=== PATIENT | male | born 1950 | race Caucasian/White ===

== ENCOUNTER → 2017-11-03 09:29 | Outpatient (CLI) | payer BC, SELFPAY ==
[2017-11-03 10:59] LABS: Absolute Lymphocyte Count 1.75 X10^3/ul (0.83-4.51); Absolute Neutrophil Count 4.5 X10^3/uL (2.0-7.7); Basophil# 0.06 X10^3/uL; Basophil% 0.8 % (0-1); Eosinophil# 0.24 X10^3/uL; Eosinophils% 3.2 % (0-5); Hemoglobin 16.4 g/dl (13.0-16.5); Lymphocyte # 1.75 X10^3/ul (4.0); Lymphocyte % 23.6 % (19-41); Mean Corp Hgb Conc 34.2 g/gl (32-36); Mean Corpuscular Hgb 31.1 pg (27.0-32.0); Mean Corpuscular Volume 90.9 fL (80-94); Mean Platelet Vol. 11.3 fl (6.2-12.0); Monocyte# 0.79 X10^3/uL; Monocyte% 10.6 % (0-10); Neutrophil # 4.53 X10^3/uL (2.7-7.7); Neutrophil % 61.1 % (47-70); Platelet Count 168 K/mm3 (150-450); RBC Distribution Width CV 12.5 % (11.6-14.6); RBC Distribution Width SD 41.3 fl (35.1-43.9); Red Blood Count 5.28 M/mm3 (4.6-6.2); White Blood Count 7.4 K/mm3 (4.4-11.0)
[2017-11-03 11:01] LABS: POSITIVE COUNT NO; POSITIVE DIFFERENTIAL NO; POSITIVE MORPHOLOGY NO
[2017-11-03 11:35] LABS: AST(SGOT) 33 U/L (15-37); Alanine Aminotransfer ALT/SGPT 59 U/L (16-61); Albumin, Serum 3.7 g/dL (3.2-5.0); Alkaline Phosphatase 70 U/L (45-117); Anion Gap 9 (5-15); BUN 17 mg/dL (7-18); BUN/Creat Ratio 13.2 RATIO (10-20); Bilirubin, Direct 0.16 mg/dL (0.00-0.30); Calcium,Total 8.8 mg/dL (8.5-10.1); Chloride 105 mmol/L (98-107); Cholesterol 136 mg/dL (200); Creatinine, Serum 1.29 mg/dL (0.70-1.30); EST Glomerular Filtration Rate 59 mL/min (>60); Est Glom Filt Rate - Afr Amer 71 mL/min (>60); Globulin 3.4 g/dL (2.2-4.2); Glucose 98 mg/dL (74-106); High Density Lipoprotein 31 mg/dL; Magnesium 2.2 mg/dL (1.6-2.6); Potassium 3.8 mmol/L (3.5-5.1); Protein, Total 7.1 g/dL (6.4-8.2); Sodium Level 143 mmol/L (136-145); Thyroid Stim Hormone (TSH) 2.56 uIU/mL (0.358-3.74); Triglycerides 111 mg/dL; Very Low Density Lipoprotein 22 mg/dL (5-40)
== END ==
PROVIDERS: Family Provider Internal Medicine; PCP Internal Medicine; Visit Provider Internal Medicine Cardiovascular Disease
DX: Z95.810 Presence of automatic (implantable) cardiac defibrillator (principal); I43 Cardiomyopathy in diseases classified elsewhere
CPT/HCPCS: 36415; 80048; 80061; 80076; 83735; 84443; 85025

== ENCOUNTER → 2020-01-07 13:24 | Outpatient (CLI) | payer BC, SELFPAY ==
[2019-11-08 09:31] VITALS: BMI 32.8
--- NOTE | 2020-01-07 13:30 | RAD_ITS ---
STUDY: X-RAY CHEST REASON FOR EXAM: Male, 69 years old. Check RV ICD lead TECHNIQUE: PA and lateral views of the chest. COMPARISON: Comparison is made with prior study dated November 05, 2014. FINDINGS: The lungs are clear and expanded. There is no demonstrated pleural abnormality. Normal size heart. Stable appearance of the dual chamber left-sided ICD. Normal mediastinum and aneta. Normal visualized pulmonary arteries. There is atherosclerotic tortuosity of the aortic arch and descending thoracic aorta. There are diffuse degenerative changes of the visualized thoracic spine. Normal visualized ribs, clavicles, and shoulders. There is no demonstrated abnormality of the visualized soft tissue structures of the upper abdomen. RAD/Chest PA and Lateral IMPRESSION: Stable examination. Electronically Signed: aMrco Borja, at 15:31 EDT , Service support ,
== END ==
PROVIDERS: PCP Internal Medicine; Referring Provider Internal Medicine Cardiovascular Disease; Visit Provider Internal Medicine Cardiovascular Disease
DX: I42.8 Other cardiomyopathies (principal); I44.7 Left bundle-branch block, unspecified; Z95.810 Presence of automatic (implantable) cardiac defibrillator
CPT/HCPCS: 71046

== ENCOUNTER 2020-02-06 10:03 | Emergency (ER) | payer BC, SELFPAY ==
[2019-11-08 09:31] VITALS: BMI 32.8
[2020-02-06 10:05] VITALS: BP 171/80; PULSE 64; RESP 17; TEMP 36.9; O2SAT 95; BMI 32.5
--- NOTE | 2020-02-06 10:06 | NURSING ---
NO OLD EKGS
--- NOTE | 2020-02-06 10:17 | EKG12_ITS ---
Test Reason : Blood Pressure : / mmHG Vent. Rate : 064 BPM Atrial Rate : 064 BPM P-R Int : 196 ms QRS Dur : 170 ms QT Int : 488 ms P-R-T Axes : 067 011 -17 degrees QTc Int : 503 ms Suspect unspecified pacemaker failure Sinus rhythm with frequent ventricular-paced complexes Left bundle branch block Abnormal ECG Confirmed by DANIELE BAKER, SOLO ([id number]), video news editor VARGHESE SOLIS ([id number]) on 02/11/2020 11:06:22 AM Referred By: LUIS FELIPE Confirmed By:SOLO SANABRIA MD
[2020-02-06] MEDS: Aspirin 81 MG TAB.CHEW 324 MG PO (10:39)
--- NOTE | 2020-02-06 10:40 | RAD_ITS ---
STUDY: X-RAY CHEST REASON FOR EXAM: Male, 69 years old. DEFIB KEEPS FIRING, LOOSE WIRE PER PT TECHNIQUE: Single AP portable view of the chest. COMPARISON: Comparison is made with prior study dated January 07, 2020. FINDINGS: EKG electrodes are seen. The lungs are clear and expanded. There is no demonstrated pleural abnormality. Normal size heart. A left-sided dual-chamber pacemaker is seen. Normal mediastinum and aneta. Normal visualized pulmonary arteries. There is atherosclerotic tortuosity of the aortic arch and descending thoracic aorta. There are diffuse degenerative changes of the visualized thoracic spine. Normal visualized ribs, clavicles, and shoulders. There is no demonstrated abnormality of the visualized soft tissue structures of the upper abdomen. RAD/Chest 1 View (Portable) IMPRESSION: No acute abnormality is seen. Electronically Signed: Marco Borja, at 11:09 EDT , Service support ,
[2020-02-06] MEDS: 0.9% Normal Saline 1,000 ML 150 ML IV (10:42)
--- NOTE | 2020-02-06 10:53 | NURSING ---
CALLED [facility], TALKED TO REKHA
[2020-02-06 10:54] LABS: Absolute Lymphocyte Count 2.44 X10^3/uL (0.83-4.51); Absolute Neutrophil Count 6.2 X10^3/uL (2.0-7.7); Basophil# 0.09 X10^3/uL; Basophil% 0.9 % (0-1); Eosinophil# 0.16 X10^3/uL; Eosinophils% 1.6 % (0-5); Hematocrit 50.2 % (40-54); Hemoglobin 16.9 g/dL (13.0-16.5); Lymphocyte # 2.44 X10^3/ul (4.0); Lymphocyte % 24.9 % (19-41); Mean Corp Hgb Conc 33.7 g/dL (32-36); Mean Corpuscular Hgb 31.2 pg (27.0-32.0); Mean Corpuscular Volume 92.6 fL (80-94); Monocyte# 0.92 X10^3/uL; Monocyte% 9.4 % (0-10); NRBC Flagged by Analyzer 0 % (0-5); Neutrophil # 6.16 X10^3/uL (2.7-7.7); Neutrophil % 62.8 % (47-70); Platelet Count 161 K/mm3 (150-450); RBC Distribution Width CV 12.9 % (11.6-14.6); RBC Distribution Width SD 43.5 fl (35.1-43.9); Red Blood Count 5.42 M/mm3 (4.6-6.2); White Blood Count 9.8 K/mm3 (4.4-11.0)
[2020-02-06 11:10] LABS: Anion Gap 5 (5-15); BUN 20 mg/dL (7-18); BUN/Creat Ratio 15.7 RATIO (10-20); Calcium,Total 9.2 mg/dL (8.5-10.1); Chloride 105 mmol/L (98-107); Creatinine, Serum 1.27 mg/dL (0.70-1.30); EST Glomerular Filtration Rate 59 mL/min (>60); Est Glom Filt Rate - Afr Amer 72 mL/min (>60); Estimated Creatinine Clearance 56.82 ml/min; Glucose 148 mg/dL (74-106); Magnesium 2.2 mg/dL (1.6-2.6); Potassium 3.6 mmol/L (3.5-5.1); Sodium Level 140 mmol/L (136-145)
[2020-02-06 11:16] VITALS: BP 145/78; PULSE 60; RESP 16; O2SAT 98
--- NOTE | 2020-02-06 11:18 | NURSING ---
CALLED PHYSICANS, ETA IS 20 MIN
--- NOTE | 2020-02-06 11:22 | ED.VISSUMM ---
- ER Visit Summary Date of Service: 02/06/20 Chief Complaint: Defibrillator firing History of Present Illness: The patient is a [address] Alvarez and Dr. Jarrett for he. He had a ICD placed by Dr. Vargas at [facility]. Reports that approximately 2 weeks ago he was seen and had an x-ray that he believes showed a fractured lead. He was scheduled to have this interrogated today. States that since 9:00 this morning it is fired 6 times. Reports he does have some soreness around his defibrillator. However, he denies chest pain. Physical Examination: Vitals: Stable. Afebrile. General: Well-nourished and well-developed. Head: Normocephalic atraumatic. Neck: Supple, no lymphadenopathy. No JVD. Nontender. Cardiovascular: Regular rate and rhythm. No murmurs. Respiratory: No respiratory distress. Clear to auscultation bilaterally. Mild tenderness palpation over his defibrillator. There is no erythema, warmth, induration, or fluctuance. Abdominal: Soft, nontender, nondistended, normal bowel sounds. No guarding, rebound, or peritoneal signs. Back: Nontender. Extremities: Nontender, no edema. Skin: Normal color, no rash. Neurologic: Alert and oriented ?3. Cranial nerves II through XII are intact. Normal strength and sensation. Psych: Normal affect. Test Results: EKG is sinus at 64 with frequent ventricular paced beats. His troponin 0 0.386. Chem-7 shows a BUN of 20 and glucose 148. CBC shows a hemoglobin of 16.9. Clinical Impression(s) from Imaging Studies Chest X-Ray 02/06/20 10:40 IMPRESSION: No acute abnormality is seen. Electronically Signed: Marco Huong, at 11:09 EDT , Service support , Emergency Department Course and Treatment: Patient pacemaker/defibrillator was interrogated in the emergency department it does appear that there is a malfunction with 1 of the wires. The defibrillator was turned off. I suspect that his elevated troponin is actually due to the multiple shocks he is received. Patient refused pain medications. Treatment Plan: Patient was discussed with Dr. Saleh and Dr. Dodd. He will be transferred to [facility] for further evaluation and treatment. Disposition: Transferred in improved condition. Impression: 1. Pacemaker/defibrillator malfunction. 2. Troponin 0.386. This note was generated with [employer] dictation software. It may contain incorrect words, spelling, and punctuation that were not noted in review of the chart prior to signing ED Disposition - Plan for ED Patient: Referrals: Tasia Lira DO [Primary Care Provider] -
== END 2020-02-06 11:58 | disposition short-term general hospital (02) ==
LOC: ED 11:06
PROVIDERS: Emergency Provider Emergency Medicine; PCP Internal Medicine
DX: T82.11 Breakdown (mechanical) of cardiac electronic device (principal); Y83.8 Other surgical procedures as the cause of abnormal reaction of the patient, or of later complication, without mention of misadventure at the time of the procedure; Z95.810 Presence of automatic (implantable) cardiac defibrillator; I10 Essential (primary) hypertension; E78.00 Pure hypercholesterolemia, unspecified
CPT/HCPCS: 71045; 80048; 83735; 84484; 85025; 93005; 99285; J7030

== ENCOUNTER → 2020-02-18 14:56 | Outpatient (CLI) | payer BC, SELFPAY ==
[2020-02-06 10:05] VITALS: BMI 32.5
--- NOTE | 2020-02-18 14:59 | VDUE_ITS ---
Reason For Study: SWELLING Right Proximal Left Proximal Right subclavian vein is spontaneous, widely Left jugular vein is spontaneous, widely patent, phasic, with no intraluminal patent, phasic, with no intraluminal echogenicity noted. echogenicity noted. Left subclavian vein is spontaneous, widely patent, phasic, with no intraluminal echogenicity noted. Left Arm Left axillary vein is spontaneous, patent, phasic, competent, compressible and demonstrates augmentation. Left brachial vein is compressible. Left cephalic vein is compressible. Basilic V is dilated and noncompressible just superior to antecubital area to mid upper arm. The remaining of the Basilic Vein is compressible and does not extend into the deep system. Left Lower Arm Left radial vein is compressible. Left ulnar vein is compressible. Interpretation Summary Deep veins of the left upper extremity are patent and compressible segmentally. There is no evidence of deep vein thrombosis. Acute superficial thrombophlebitis is noted involving the left basilic vein from the antecubital space to the mid-bicep. The superficial thrombophlebitis does not approach the deep venous system. The left cephalic vein is patent and compressible. Ordering Physician: Sulma Hicks Referring Physician: Tasia Lira Performed By: Noni Redmond, JOSH, RVT ?
== END ==
PROVIDERS: PCP Internal Medicine; Referring Provider Nurse Practitioner; Visit Provider Nurse Practitioner
DX: M79.89 Other specified soft tissue disorders (principal)
CPT/HCPCS: 93971

== ENCOUNTER → 2021-04-28 10:26 | Outpatient (CLI) | payer BC, SELFPAY ==
[2021-04-28 12:10] LABS: Absolute Lymphocyte Count 1.49 X10^3/uL (0.83-4.51); Absolute Neutrophil Count 4.8 X10^3/uL (2.0-7.7); Basophil# 0.05 X10^3/uL; Basophil% 0.7 % (0-1); Eosinophil# 0.16 X10^3/uL; Eosinophils% 2.2 % (0-5); Hematocrit 50.8 % (40-54); Hemoglobin 16.9 g/dL (13.0-16.5); Lymphocyte # 1.49 X10^3/ul (0.83-4.51); Lymphocyte % 20.6 % (19-41); Mean Corp Hgb Conc 33.3 g/dL (32-36); Mean Corpuscular Hgb 30.3 pg (27.0-32.0); Mean Platelet Vol. 11.1 fl (6.2-12.0); Monocyte# 0.68 X10^3/uL; Monocyte% 9.4 % (0-10); NRBC Flagged by Analyzer 0 % (0-5); Neutrophil # 4.81 X10^3/uL (2.7-7.7); Neutrophil % 66.4 % (47-70); Platelet Count 151 K/mm3 (150-450); RBC Distribution Width CV 12.7 % (11.6-14.6); RBC Distribution Width SD 42.7 fl (35.1-43.9); Red Blood Count 5.58 M/mm3 (4.6-6.2); White Blood Count 7.2 K/mm3 (4.4-11.0)
[2021-04-28 12:29] LABS: Vitamin D,25 Hydroxy 39.7 ng/mL
[2021-04-28 12:41] LABS: Hemoglobin A1c 5.8 % (3.8-5.6)
[2021-04-28 12:47] LABS: AST(SGOT) 31 U/L (15-37); Alanine Aminotransfer ALT/SGPT 51 U/L (16-61); Albumin, Serum 3.7 g/dL (3.2-5.0); Alkaline Phosphatase 80 U/L (45-117); Anion Gap 8 (5-15); BUN 16 mg/dL (7-18); BUN/Creat Ratio 11.6 RATIO (10-20); Calcium,Total 8.8 mg/dL (8.5-10.1); Chloride 107 mmol/L (98-107); Cholesterol 144 mg/dL (200); Creatinine, Serum 1.38 mg/dL (0.70-1.30); EST Glomerular Filtration Rate 54 mL/min (>60); Est Glom Filt Rate - Afr Amer 65 mL/min (>60); Globulin 3.7 g/dL (2.2-4.2); Glucose 117 mg/dL (74-106); High Density Lipoprotein 41 mg/dL; PSA,Total - Annual Screen 3.35 ng/mL (0.00-4.00); Potassium 4.1 mmol/L (3.5-5.1); Protein, Total 7.4 g/dL (6.4-8.2); Sodium Level 142 mmol/L (136-145); Thyroid Stim Hormone (TSH) 5.35 uIU/mL (0.358-3.74); Triglycerides 80 mg/dL; Very Low Density Lipoprotein 16 mg/dL (5-40)
[2021-04-29 11:21] LABS: Free T3 2.6 pg/mL (2.18-3.98); T4 Free Direct 0.79 ng/dL (0.76-1.46)
== END ==
PROVIDERS: Nurse Practitioner Family; PCP Internal Medicine; Referring Provider Internal Medicine; Visit Provider Internal Medicine
DX: E78.5 Hyperlipidemia, unspecified (principal); E66.9 Obesity, unspecified; R73.09 Other abnormal glucose; I10 Essential (primary) hypertension; G47.33 Obstructive sleep apnea (adult) (pediatric); E55.9 Vitamin D deficiency, unspecified; Z12.5 Encounter for screening for malignant neoplasm of prostate
CPT/HCPCS: 36415; 80053; 80061; 82306; 83036; 83735; 84153; 84439; 84443; 84481; 85025; G0103

== ENCOUNTER 2021-07-27 09:05 | Outpatient (CLI) | payer BC, SELFPAY | END 2021-07-27 23:59 | disposition home or self-care (01) | LOC: LABSPEC 09:06 | PROVIDERS: PCP Internal Medicine; Referring Provider Physician Assistant Surgical; Visit Provider Physician Assistant Surgical | DX: U07.1 COVID-19 (principal) | CPT/HCPCS: 87635; U0003; U0005 ==

== ENCOUNTER → 2022-02-01 | Outpatient (CLI) | payer BC, SELFPAY ==
--- NOTE | 2022-02-01 12:47 | ECHOCS_ITS ---
Version 2 Reason For Study: CHF Procedure This was a 2D Doppler, Color Flow transthoracic echocardiogram. Contrast injection was performed. Exam performed in department. Left Ventricle Normal LV size. The estimated ejection fraction is 40 %. There is mild to moderate global hypokinesis of the left ventricle. Right Ventricle Normal RV size. ICD or pacer leads identified within the right ventricle. Normal systolic function. Atria Normal left atrium. Normal right atrium. Mitral Valve Normal mitral valve. Mild (1+) eccentric mitral valve insufficiency. Tricuspid Valve Normal tricuspid valve. Mild (1+) tricuspid valve insufficiency. Pulmonary artery systolic pressure is 40 mmHg. Aortic Valve The aortic valve is not well visualized. Pulmonic Valve Normal pulmonic valve. Great Vessels Normal aortic root. The pulmonary artery is normal size. Normal inferior vena cava. Pericardium/Pleural No pericardial effusion. Medication Diluted definity 3ml given slow IV push to enhance endocardial definition. MMode/2D Measurements & Calculations LVIDd: 4.9 cm IVSd: 1.2 cm Ao root diam: 3.2 cm LVIDs: 4.1 cm LVPWd: 1.3 cm RVDd: 4.0 cm FS: 15.4 % LAV(MOD-bp): 69.4 ml LVAd ap4: 33.3 cm2 SV(MOD-sp4): 48.7 ml LAV(MOD-bp) Indexed: 30.7 ml/m2 LVLd ap4: 8.4 cm LAV(MOD-sp2): 72.3 ml EDV(MOD-sp4): 107.0 ml LAV(MOD-sp4): 60.0 ml EDV(sp4-el): 112.2 ml LVAs ap4: 22.7 cm2 LVLs ap4: 7.2 cm ESV(MOD-sp4): 58.3 ml ESV(sp4-el): 60.8 ml EF(MOD-sp4): 45.5 % EF(sp4-el): 45.8 % SV(sp4-el): 51.4 ml LA A4 area: 21.0 cm2 LA dimension(2D): 5.0 cm RA A4 area: 19.4 cm2 Doppler Measurements & Calculations Lat Peak E' Mike: 8.7 cm/sec Med Peak E' Mike: 7.5 cm/sec Ao V2 max: 126.9 cm/sec Ao max P.4 mmHg Ao V2 mean: 91.8 cm/sec Ao mean P.6 mmHg Ao V2 VTI: 27.6 cm LV V1 max: 104.4 cm/sec PA V2 max: 81.6 cm/sec TR max mike: 297.5 cm/sec LV V1 max P.4 mmHg TR max P.4 mmHg ECHO/Echo Complete W/ Contrast Interpretation Summary Normal LV size. The estimated ejection fraction is 40 %. There is mild to moderate global hypokinesis of the left ventricle. Mild (1+) eccentric mitral valve insufficiency. Pulmonary artery systolic pressure is 40 mmHg. Contrast injection was performed. Compared to previous study, the left ventricu lar systolic function has improved.. Ordering Physician: Ganesh Silva Referring Physician: Etta Rocha Performed By: Ira Silva, JOSH, RVT
== END | disposition home or self-care (01) ==
PROVIDERS: PCP Internal Medicine; Referring Provider Nurse Practitioner Family; Visit Provider Nurse Practitioner Family
DX: I42.8 Other cardiomyopathies (principal); Z95.810 Presence of automatic (implantable) cardiac defibrillator; I10 Essential (primary) hypertension
CPT/HCPCS: 93306; Q9957; A4216; C8929

== ENCOUNTER → 2022-04-29 | Outpatient (CLI) | payer BC, SELFPAY ==
[2022-04-29 10:18] LABS: Absolute Lymphocyte Count 1.71 X10^3/uL (0.83-4.51); Absolute Neutrophil Count 4.1 X10^3/uL (2.0-7.7); Basophil# 0.07 X10^3/uL; Eosinophil# 0.23 X10^3/uL; Eosinophils% 3.3 % (0-5); Hematocrit 49.3 % (40-54); Hemoglobin 16.3 g/dL (13.0-16.5); Lymphocyte # 1.71 X10^3/ul (0.83-4.51); Lymphocyte % 24.7 % (19-41); Mean Corp Hgb Conc 33.1 g/dL (32-36); Mean Corpuscular Volume 93.7 fL (80-94); Mean Platelet Vol. 11.3 fl (6.2-12.0); Monocyte# 0.74 X10^3/uL; Monocyte% 10.7 % (0-10); NRBC Flagged by Analyzer 0 % (0-5); Neutrophil # 4.12 X10^3/uL (2.7-7.7); Neutrophil % 59.7 % (47-70); Platelet Count 172 K/mm3 (150-450); RBC Distribution Width CV 12.2 % (11.6-14.6); RBC Distribution Width SD 42.5 fl (35.1-43.9); Red Blood Count 5.26 M/mm3 (4.6-6.2); White Blood Count 6.9 K/mm3 (4.4-11.0)
[2022-04-29 10:43] LABS: Vitamin D,25 Hydroxy 45.6 ng/mL
[2022-04-29 10:49] LABS: Hemoglobin A1c 5.8 % (3.8-5.6)
[2022-04-29 10:50] LABS: ALB/GLOB Ratio 1.1 RATIO (0.9-2.4); AST(SGOT) 29 U/L (15-37); Alanine Aminotransfer ALT/SGPT 57 U/L (16-61); Albumin, Serum 3.8 g/dL (3.2-5.0); Alkaline Phosphatase 79 U/L (45-117); Anion Gap 6 (5-15); BUN 18 mg/dL (7-18); BUN/Creat Ratio 14.3 RATIO (10-20); Chloride 111 mmol/L (98-107); Cholesterol 135 mg/dL (200); Creatinine, Serum 1.26 mg/dL (0.70-1.30); EST Glomerular Filtration Rate 60 mL/min (>60); Est Glom Filt Rate - Afr Amer 72 mL/min (>60); Globulin 3.5 g/dL (2.2-4.2); Glucose 115 mg/dL (74-106); High Density Lipoprotein 41 mg/dL; Protein, Total 7.3 g/dL (6.4-8.2); Sodium Level 144 mmol/L (136-145); T4 Free Direct 0.82 ng/dL (0.76-1.46); Thyroid Stim Hormone (TSH) 2.83 uIU/mL (0.358-3.74); Triglycerides 60 mg/dL; Very Low Density Lipoprotein 12 mg/dL (5-40)
== END | disposition home or self-care (01) ==
LOC: LAB 09:23
PROVIDERS: PCP Internal Medicine; Visit Provider Internal Medicine
DX: E55.9 Vitamin D deficiency, unspecified (principal); I42.8 Other cardiomyopathies; E66.9 Obesity, unspecified; I10 Essential (primary) hypertension; R73.9 Hyperglycemia, unspecified; R73.09 Other abnormal glucose
CPT/HCPCS: 36415; 80053; 80061; 82306; 83036; 84439; 84443; 85025

== ENCOUNTER → 2023-02-04 | Outpatient (CLI) | payer BC, SELFPAY ==
--- NOTE | 2023-02-04 08:35 | ECHOD_ITS ---
Reason For Study: CMP Procedure This was a 2D Doppler, Color Flow transthoracic echocardiogram. Exam performed in department. Left Ventricle Normal LV size. Mild concentric left ventricular hypertrophy. The left ventricular ejection fraction is 45 %. There is mild global hypokinesis of the left ventricle. Right Ventricle Normal RV size. Normal systolic function. Atria The left atrium is moderately enlarged. Normal right atrium. Mitral Valve Normal mitral valve. Tricuspid Valve Normal tricuspid valve. Mild (1+) tricuspid valve insufficiency. Pulmonary artery systolic pressure is 36 mmHg. Aortic Valve The aortic valve is not well visualized. Pulmonic Valve Normal pulmonic valve. Great Vessels Normal aortic root. The pulmonary artery is normal size. Normal inferior vena cava. Pericardium/Pleural No pericardial effusion. MMode/2D Measurements & Calculations LVIDd: 4.6 cm IVSd: 1.4 cm Ao root diam: 3.2 cm LVIDs: 3.4 cm LVPWd: 1.7 cm FS: 26.0 % LAV(MOD-bp): 105.0 ml LVAd ap4: 40.6 cm2 SV(MOD-sp4): 67.9 ml LAV(MOD-bp) Indexed: 46.3 ml/m2 LVLd ap4: 10.0 cm LAV(MOD-sp2): 106.9 ml EDV(MOD-sp4): 137.3 ml LAV(MOD-sp4): 98.1 ml EDV(sp4-el): 139.2 ml LVAs ap4: 24.2 cm2 LVLs ap4: 8.2 cm ESV(MOD-sp4): 69.4 ml ESV(sp4-el): 60.7 ml EF(MOD-sp4): 49.5 % EF(sp4-el): 56.4 % SV(sp4-el): 78.5 ml LA A4 area: 26.1 cm2 LA dimension(2D): 4.2 cm RA A4 area: 18.4 cm2 TAPSE: 2.5 cm Time Measurements MV dec time: 0.20 sec Doppler Measurements & Calculations MV E max mike: 70.3 cm/sec Lat Peak E' Mike: 6.8 cm/sec Med Peak E' Mike: 6.2 cm/sec MV A max mike: 49.4 cm/sec E/E' lat: 10.4 E/E' med: 11.4 MV E/A: 1.4 MV V2 max: 81.6 cm/sec Ao V2 max: 101.6 cm/sec MV max P.7 mmHg MV dec slope: 348.3 cm/sec2 Ao max P.2 mmHg MV V2 mean: 38.7 cm/sec Ao V2 mean: 69.4 cm/sec MV mean P.75 mmHg Ao mean P.3 mmHg MV V2 VTI: 26.7 cm Ao V2 VTI: 22.2 cm AV (velocity ratio): 0.69 LV V1 max: 66.1 cm/sec PA V2 max: 71.4 cm/sec TR max mike: 283.7 cm/sec LV V1 max P.8 mmHg PA V2 mean: 52.5 cm/sec TR max P.2 mmHg LV V1 mean P.0 mmHg LV V1 mean: 47.3 cm/sec LV V1 VTI: 15.2 cm ECHO/Echo Complete Interpretation Summary Normal LV size. Mild concentric left ventricular hypertrophy. The left ventricular ejection fraction is 45 %. There is mild global hypokinesis of the left ventricle. Pulmonary artery systolic pressure is 36 mmHg. Compared to previous study, the left ventricular systolic function is the same. . Ordering Physician: Cheikh Ny Referring Physician: Cheikh Ny Performed By: Coby Call RCS
== END | disposition home or self-care (01) ==
LOC: CVS 08:32
PROVIDERS: PCP Internal Medicine; Referring Provider Internal Medicine Cardiovascular Disease; Visit Provider Internal Medicine Cardiovascular Disease
DX: I42.8 Other cardiomyopathies (principal)
CPT/HCPCS: 93306

== ENCOUNTER → 2023-03-14 | Outpatient (CLI) | payer BC, SELFPAY ==
[2023-03-14 11:21] LABS: Absolute Lymphocyte Count 1.92 X10^3/uL (0.83-4.51); Absolute Neutrophil Count 5.9 X10^3/uL (2.0-7.7); Basophil# 0.08 X10^3/uL; Basophil% 0.9 % (0-1); Eosinophil# 0.22 X10^3/uL; Eosinophils% 2.4 % (0-5); Hematocrit 49.7 % (40-54); Hemoglobin 16.2 g/dL (13.0-16.5); Lymphocyte # 1.92 X10^3/ul (0.83-4.51); Lymphocyte % 20.9 % (19-41); Mean Corp Hgb Conc 32.6 g/dL (32-36); Mean Corpuscular Hgb 30.2 pg (27.0-32.0); Mean Corpuscular Volume 92.7 fL (80-94); Mean Platelet Vol. 11.1 fl (6.2-12.0); Monocyte# 0.94 X10^3/uL; Monocyte% 10.2 % (0-10); NRBC Flagged by Analyzer 0 % (0-5); Neutrophil # 5.94 X10^3/uL (2.7-7.7); Neutrophil % 64.7 % (47-70); Platelet Count 178 K/mm3 (150-450); RBC Distribution Width CV 12.8 % (11.6-14.6); RBC Distribution Width SD 43.3 fl (35.1-43.9); Red Blood Count 5.36 M/mm3 (4.6-6.2); White Blood Count 9.2 K/mm3 (4.4-11.0)
[2023-03-14 11:55] LABS: Hemoglobin A1c 5.9 % (3.8-5.6)
[2023-03-14 12:02] LABS: PSA,Total - Annual Screen 4.18 ng/mL (0.00-4.00)
[2023-03-14 12:14] LABS: ALB/GLOB Ratio 1.1 RATIO (0.9-2.4); AST(SGOT) 34 U/L (15-37); Alanine Aminotransfer ALT/SGPT 60 U/L (16-61); Albumin, Serum 3.8 g/dL (3.2-5.0); Alkaline Phosphatase 80 U/L (45-117); Anion Gap 5 (5-15); BUN 19 mg/dL (7-18); BUN/Creat Ratio 13.9 RATIO (10-20); Calcium,Total 8.8 mg/dL (8.5-10.1); Chloride 110 mmol/L (98-107); Cholesterol 147 mg/dL (200); Creatinine, Serum 1.37 mg/dL (0.70-1.30); EST Glomerular Filtration Rate 54 mL/min (>60); Est Glom Filt Rate - Afr Amer 65 mL/min (>60); Globulin 3.5 g/dL (2.2-4.2); Glucose 115 mg/dL (74-106); High Density Lipoprotein 43 mg/dL; Potassium 3.7 mmol/L (3.5-5.1); Protein, Total 7.3 g/dL (6.4-8.2); Sodium Level 140 mmol/L (136-145); Thyroid Stim Hormone (TSH) 6.22 uIU/mL (0.358-3.74); Triglycerides 95 mg/dL; Very Low Density Lipoprotein 19 mg/dL (5-40)
[2023-03-14 13:17] LABS: PSA,Total- Diagnostic 4.19 ng/mL (0.0-4.0)
== END | disposition home or self-care (01) ==
PROVIDERS: PCP Internal Medicine; Referring Provider Internal Medicine; Visit Provider Internal Medicine
DX: Z00.00 Encounter for general adult medical examination without abnormal findings (principal); R73.09 Other abnormal glucose; Z95.810 Presence of automatic (implantable) cardiac defibrillator; I10 Essential (primary) hypertension; E78.5 Hyperlipidemia, unspecified; G47.33 Obstructive sleep apnea (adult) (pediatric); E66.9 Obesity, unspecified; E55.9 Vitamin D deficiency, unspecified; Z13.220 Encounter for screening for lipoid disorders; R79.89 Other specified abnormal findings of blood chemistry; N40.0 Benign prostatic hyperplasia without lower urinary tract symptoms; R97.20 Elevated prostate specific antigen [PSA]
CPT/HCPCS: 36415; 80053; 80061; 82306; 83036; 84153; 84439; 84443; 84481; 85025; G0103

== ENCOUNTER 2023-04-13 08:38 | Day surgery (SDC) | payer BC, SELFPAY ==
[2023-04-13 09:01] VITALS: BP 137/67; PULSE 60; RESP 16; TEMP 37.1; O2SAT 98; BMI 33.2
[2023-04-13] MEDS: Lactated Ringers 1,000 ML 15 ML IV (09:19)
--- NOTE | 2023-04-13 09:30 | COLBX_PTH ---
PATIENT: CR GAMBLE LOC: EN U#:[id number] AGE/SX: 72/M ROOM: RE04/13/[address]: Dr. Reilly Hunter DO : 1950 BED: DIS: 04/13/2023 SPEC #: [id number] RECD: 04/13/23 12:25 STATUS: ALLEN JOCELINE #: [id number] MARJORIE: 04/13/23 09:[address]: Reilly Hunter DEPT: SURGICAL PATHOLOGY RECD BY: Nany Brandt ENTERED: 04/13/23 13:03 SP TYPE: COLON BX OTHR DR: Dr. Etta Rocha MD Tissues: Cecum, NOS Procedures: Surgery Specimen Level IV HEADER OPERATION: Colonoscopy, biopsy PRE-OP DIAGNOSIS: Colon cancer screening TISSUE SUBMITTED: Polyp cecum biopsy MICROSCOPIC DIAGNOSIS Cecum polyp, biopsy: Tubular adenoma. HUMZA:jaden 04/14/2023 MICROSCOPIC DESCRIPTION Slides are reviewed. GROSS DESCRIPTION Received in fixative is one container labeled with the patient's name and designated polyp cecum. The specimen consists of two irregular fragments of light rogers soft tissue that in aggregate measure 0.6 x 0.3 x 0.1 cm. The specimen is totally submitted in one cassette. / SJ:rg 04/13/2023 TC:1 CPT: 35794
--- NOTE | 2023-04-13 09:51 | PCM.HP.BLA ---
History and Physical Date of Admission: 04/13/23 2 M who presents to the office today for a consult. Prior workup:?Colonoscopy 2.8. screening?small hemorrhoids; diverticulosis.? States he was referred for a screening colonoscopy from his PCP. States that he has had intermittent constipation for the past month. 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 States that the constipation is usually relieved after drinking a couple cups of coffee. Denies any blood in stool. ROS Const Constitutional: No fatigue, fever(s), frequent falls, headache(s) or weight change ENT ENT: No headache(s) or difficulty swallowing Cardio Cardiology: Positive for leg pain with exertion Gastro GI: Positive for constipation; No abdominal pain, bloating, change in bowel habits, diarrhea, heartburn, difficulty swallowing, Vomiting blood/hematemesis, Blood in stool, nausea/dyspepsia or vomiting Musc Musculoskeletal: Positive for back pain, Arthritis and leg pain with exertion; No abnormal gait, joint pain, joint swelling, muscle cramps, muscle weakness, numbness, stiffness, tingling, sciatica or leg pain at night Skin Skin: No dry skin, lesions, itchy eyes or rash Neuro Neurology: No abnormal gait, dizziness, frequent falls, headache(s), numbness, tingling, tremor(s), Increased tone in limbs, paralysis or seizures Psych Psychiatric: No anxiety, No depression, No paranoia, No Behavioral Problems, No Compulsive Behavior, No hyperactivity, No inattentiveness, No obsessions/compulsions, No Temper Tantrums and No suicidal ideation Endo Endocrine: No fatigue or weight change Aller/Imm Allergy/Immunologic: No itchy eyes Varun/Lymp Hematologic/Lymphatic: No easy bleeding or easy bruising Exam Const General: cooperative and healthy appearing [facility] Head: normal to inspection Ears: hearing grossly normal bilaterally, TM's normal bilaterally and EAC's normal Nose: nasal discharge purulent Face and sinus: sinus tenderness frontal and maxillary Mouth: oral mucosae normal Throat: abnormal tonsil bilaterally erythema and hypertrophy 1+ and postnasal drainage Resp Effort & Inspection: normal respiratory effort Auscultation: Bilateral: Clear to Auscultation Cardio Palpation: normal PMI Rate: regular rate Rhythm: regular rhythm Neuro General: patient alert and CN's II-XI intact bilaterally Psych Appearance: grossly normal Mental Status: mental status grossly normal Quality Reporting Tobacco Screening ([facility] 138) Smoking Status: Never smoker Assessment and Plan Assessment and Plan (1) Colon cancer screening: Status: Acute Plan: He will undergo colonoscopy. He was explained alternatives, benefits, infection, sepsis, perforation . He will have an ASA 2. I have examined the patient and the H&P has been reviewed. There are no clinical changes since date of exam.
[2023-04-13 10:20] VITALS: BP 128/90; BP 137/67; PULSE 60; RESP 12; TEMP 36.7; O2SAT 96
[2023-04-13 10:23] VITALS: BP 127/71; BP 137/67; PULSE 62; RESP 14; O2SAT 92
[2023-04-13 10:30] VITALS: BP 133/73; BP 137/67; PULSE 63; RESP 18; O2SAT 98
--- NOTE | 2023-04-13 10:31 | OP.COLON_ITS ---
Patient Name: Filippo Fernandez Procedure Date: 04/13/2023 9:57 AM Date of : 1950 Age: 72 Procedure: Colonoscopy Indications: Screening for colorectal malignant neoplasm Providers: Reilly Hunter DO Referring MD: Reilly Hunter DO Medicines: Monitored Anesthesia Care Patient Profile: This is a 72 year old male. Refer to note in patient chart for documentation of history and physical. Last Colonoscopy: date unknown. Unable to locate last colonoscopy report. Complications: No immediate complications. Procedure: Pre-Anesthesia Assessment: - Prior to the procedure, a History and Physical was performed, and patient medications and allergies were reviewed. The patient is competent. The risks and benefits of the procedure and the sedation options and risks were discussed with the patient. All questions were answered and informed consent was obtained. Patient identification and proposed procedure were verified by the physician in the pre-procedure area. Mental Status Examination: alert and oriented. Airway Examination: normal oropharyngeal airway and neck mobility. Respiratory Examination: clear to auscultation. CV Examination: normal. Prophylactic Antibiotics: The patient does not require prophylactic antibiotics. Prior Anticoagulants: The patient has taken no anticoagulant or antiplatelet agents. After reviewing the risks and benefits, the patient was deemed in satisfactory condition to undergo the procedure. The anesthesia plan was to use monitored anesthesia care (MAC). Immediately prior to administration of medications, the patient was re-assessed for adequacy to receive sedatives. The heart rate, respiratory rate, oxygen saturations, blood pressure, adequacy of pulmonary ventilation, and response to care were monitored throughout the procedure. The physical status of the patient was re-assessed after the procedure. After I obtained informed consent, the scope was passed under direct vision. Throughout the procedure, the patient's blood pressure, pulse, and oxygen saturations were monitored continuously. The Colonoscope was introduced through the anus and advanced to the cecum, identified by appendiceal orifice and ileocecal valve. The colonoscopy was performed without difficulty. The patient tolerated the procedure well. The quality of the bowel preparation was adequate. The ileocecal valve, appendiceal orifice, and rectum were photographed. Scope In: 10:03:14 AM Scope Withdrawal Time 0 hours 9 minutes 18 seconds Scope Out: 10:14:06 AM Total Procedure Duration Time 0 hours 10 minutes 52 seconds Findings: The perianal and digital rectal examinations were normal. Multiple small and large-mouthed diverticula were found in the recto-sigmoid colon and sigmoid colon. A 9 mm polyp was found in the cecum. The polyp was sessile. The polyp was removed with a cold snare. Resection and retrieval were complete. Verification of patient identification for the specimen was done. Estimated blood loss was minimal. External and internal hemorrhoids were found during retroflexion. The hemorrhoids were small. Impression: - Diverticulosis in the recto-sigmoid colon and in the sigmoid colon. - One 9 mm polyp in the cecum, removed with a cold snare. Resected and retrieved. - External and internal hemorrhoids. Recommendation: - Repeat colonoscopy in 5 years for surveillance. - Continue present medications. Procedure Code(s): --- Professional --- 69485, Colonoscopy, flexible; with removal of tumor(s), polyp(s), or other lesion(s) by snare technique CPT copyright 2021 [employer]. All rights reserved. The codes documented in this report are preliminary and upon artifacts conservator review may be revised to meet current compliance requirements. Reilly Hunter DO 04/13/2023 10:31:10 AM This report has been signed electronically. Number of Addenda: 0 Note Initiated On: 04/13/2023 9:57 AM
--- NOTE | 2023-04-13 10:31 | OP.CCLET_ITS ---
04/13/2023 Etta Rocha [facility] [address] [place] [address] Re : Colonoscopy procedure for Filippo Fernandez Dear Dr. Rocha This procedure was performed on Thursday, April 13, 2023. My impressions and recommendations are as follows: Impressions : - Diverticulosis in the recto-sigmoid colon and in the sigmoid colon. - One 9 mm polyp in the cecum, removed with a cold snare. Resected and retrieved. - External and internal hemorrhoids. Recommendations : - Repeat colonoscopy in 5 years for surveillance. - Continue present medications. My findings are described in the full procedure note, which is enclosed. If I can be of further assistance, please feel free to contact me at . Sincerely, Reilly Hunter, 04/13/2023 10:31:10 AM This report has been signed electronically.
[2023-04-13 10:33] VITALS: BP 129/71; BP 137/67; PULSE 60; RESP 18; TEMP 36.9; O2SAT 96
[2023-04-13 10:48] VITALS: BP 137/67
== END 2023-04-13 11:01 | disposition home or self-care (01) ==
LOC: EN 08:38 → AC 08:41
PROVIDERS: PCP Internal Medicine; Referring Provider Internal Medicine; Visit Provider Internal Medicine Gastroenterology
PROC: 0DJD8ZZ Inspection of Lower Intestinal Tract, Via Natural or Artificial Opening Endoscopic (ICD-10-PCS; CPT 45378; principal; 2023-04-13 09:25)
DX: Z12.11 Encounter for screening for malignant neoplasm of colon (principal); K64.8 Other hemorrhoids; K57.30 Diverticulosis of large intestine without perforation or abscess without bleeding; K64.4 Residual hemorrhoidal skin tags; K63.5 Polyp of colon
CPT/HCPCS: 45385; 88305; J7120; J2405

== ENCOUNTER 2023-11-04 08:34 | Outpatient (CLI) | payer BC, SELFPAY ==
[2023-11-04 12:55] LABS: Vitamin D,25 Hydroxy 52.2 ng/mL
[2023-11-04 13:32] LABS: ALB/GLOB Ratio 1.1 RATIO (0.9-2.4); AST(SGOT) 37 U/L (15-37); Alanine Aminotransfer ALT/SGPT 56 U/L (16-61); Albumin, Serum 3.6 g/dL (3.2-5.0); Alkaline Phosphatase 65 U/L (45-117); Anion Gap 7 (5-15); BUN 18 mg/dL (7-18); BUN/Creat Ratio 12.8 RATIO (10-20); Calcium,Total 9.3 mg/dL (8.5-10.1); Chloride 104 mmol/L (98-107); Creatinine, Serum 1.41 mg/dL (0.70-1.30); EST Glomerular Filtration Rate 52 mL/min (>60); Est Glom Filt Rate - Afr Amer 63 mL/min (>60); Free T3 2.6 pg/mL (2.18-3.98); Globulin 3.3 g/dL (2.2-4.2); Glucose 149 mg/dL (74-106); Potassium 3.6 mmol/L (3.5-5.1); Protein, Total 6.9 g/dL (6.4-8.2); Sodium Level 138 mmol/L (136-145); T4 Free Direct 0.82 ng/dL (0.76-1.46); Thyroid Stim Hormone (TSH) 7.06 uIU/mL (0.358-3.74)
[2023-11-04 13:43] LABS: Hemoglobin A1c 6.2 % (3.8-5.6)
== END 2023-11-04 23:59 | disposition home or self-care (01) ==
LOC: BIMLAB 08:34
PROVIDERS: PCP Internal Medicine; Referring Provider Internal Medicine; Visit Provider Internal Medicine
DX: R79.89 Other specified abnormal findings of blood chemistry (principal); I10 Essential (primary) hypertension; E78.5 Hyperlipidemia, unspecified; R97.20 Elevated prostate specific antigen [PSA]; Z12.5 Encounter for screening for malignant neoplasm of prostate; E55.9 Vitamin D deficiency, unspecified; R73.9 Hyperglycemia, unspecified
CPT/HCPCS: 36415; 80053; 82306; 83036; 84439; 84443; 84481

== ENCOUNTER → 2023-11-22 | Outpatient (CLI) | payer BC, SELFPAY ==
--- NOTE | 2023-11-22 17:22 | RAD_ITS ---
INDICATION: cough EXAMINATION/TECHNIQUE: X-RAY - XR Chest 2 Views COMPARISON: No relevant prior comparison study available FINDINGS: LINES/DEVICES: Left chest wall pacer with leads over the right atrium, right ventricle, and coronary sinus. LUNGS: The lungs are well expanded. No consolidation, edema or effusion. No pneumothorax. MEDIASTINUM AND CARDIOVASCULAR STRUCTURES: Cardiac silhouette not enlarged. Central airways and mediastinal contour are unremarkable. BONES AND SOFT TISSUES: No acute abnormality. RAD/Chest PA and Lateral IMPRESSION: No acute pulmonary finding. Electronically Signed: Tad Justin MD at 0:49 EDT ,
== END | disposition home or self-care (01) ==
LOC: RAD 17:04
PROVIDERS: PCP Internal Medicine; Referring Provider Internal Medicine; Visit Provider Internal Medicine
DX: J20.9 Acute bronchitis, unspecified (principal); R05.9 Cough, unspecified
CPT/HCPCS: 71046

== ENCOUNTER → 2024-01-30 | Outpatient (CLI) | payer BC, SELFPAY ==
[2024-01-30 13:20] LABS: Free T3 2.4 pg/mL (2.18-3.98); T4 Free Direct 0.79 ng/dL (0.76-1.46); Thyroid Stim Hormone (TSH) 5.78 uIU/mL (0.358-3.74)
== END | disposition home or self-care (01) ==
LOC: LAB 12:13
PROVIDERS: PCP Internal Medicine; Referring Provider Internal Medicine; Visit Provider Internal Medicine
DX: E03.9 Hypothyroidism, unspecified (principal)
CPT/HCPCS: 36415; 84439; 84443; 84481

== ENCOUNTER → 2024-09-06 | Outpatient (CLI) | payer MEDICARE, SELFPAY ==
[2024-09-06 10:24] LABS: Absolute Neutrophil Count 6.4 X10^3/uL (2.0-7.7); Basophil# 0.08 X10^3/uL; Basophil% 0.9 % (0-1); Eosinophil# 0.12 X10^3/uL; Eosinophils% 1.4 % (0-5); Hematocrit 49.8 % (40-54); Hemoglobin 16.9 g/dL (13.0-16.5); Mean Corp Hgb Conc 33.9 g/dL (32-36); Mean Corpuscular Hgb 30.8 pg (27.0-32.0); Mean Corpuscular Volume 90.7 fL (80-94); Mean Platelet Vol. 11.1 fl (6.2-12.0); Monocyte# 0.73 X10^3/uL; Monocyte% 8.4 % (0-10); NRBC Flagged by Analyzer 0 % (0-5); Neutrophil # 6.36 X10^3/uL (2.7-7.7); Neutrophil % 73.7 % (47-70); Platelet Count 142 K/mm3 (150-450); RBC Distribution Width SD 39.8 fl (35.1-43.9); Red Blood Count 5.49 M/mm3 (4.6-6.2); White Blood Count 8.6 K/mm3 (4.4-11.0)
[2024-09-06 10:50] LABS: AST(SGOT) 39 U/L (15-37); Alanine Aminotransfer ALT/SGPT 54 U/L (16-61); Albumin, Serum 3.7 g/dL (3.2-5.0); Alkaline Phosphatase 74 U/L (45-117); Anion Gap 4 (5-15); BUN 21 mg/dL (7-18); BUN/Creat Ratio 14.9 RATIO (10-20); Calcium,Total 9.5 mg/dL (8.5-10.1); Chloride 110 mmol/L (98-107); Cholesterol 146 mg/dL (200); Creatinine, Serum 1.41 mg/dL (0.70-1.30); EST Glomerular Filtration Rate 52 mL/min (>60); Est Glom Filt Rate - Afr Amer 63 mL/min (>60); Globulin 3.6 g/dL (2.2-4.2); Glucose 138 mg/dL (74-106); High Density Lipoprotein 41 mg/dL; Potassium 3.8 mmol/L (3.5-5.1); Protein, Total 7.3 g/dL (6.4-8.2); Sodium Level 141 mmol/L (136-145); Triglycerides 86 mg/dL; Very Low Density Lipoprotein 17 mg/dL (5-40)
[2024-09-06 10:58] LABS: Free T3 2.3 pg/mL (2.18-3.98); PSA,Total - Annual Screen 6.74 ng/mL (0.00-4.00); T4 Free Direct 0.92 ng/dL (0.76-1.46)
[2024-09-06 11:06] LABS: Vitamin D,25 Hydroxy 39.8 ng/mL
[2024-09-07 13:08] LABS: Insulin Level 21.1 uIU/mL (2.6-24.9)
== END | disposition home or self-care (01) ==
LOC: LAB 10:00
PROVIDERS: PCP Internal Medicine; Referring Provider Internal Medicine; Visit Provider Internal Medicine
DX: E03.9 Hypothyroidism, unspecified (principal); Z12.5 Encounter for screening for malignant neoplasm of prostate; E78.5 Hyperlipidemia, unspecified; I10 Essential (primary) hypertension; Z13.220 Encounter for screening for lipoid disorders; R73.09 Other abnormal glucose; E55.9 Vitamin D deficiency, unspecified
CPT/HCPCS: 36415; 80053; 80061; 82306; 83525; 84153; 84439; 84443; 84481; 85025; G0103

== ENCOUNTER → 2024-09-14 | Outpatient (CLI) | payer MEDICARE, SELFPAY ==
[2024-09-14 14:59] LABS: Hemoglobin A1c 6.1 % (3.8-5.6)
== END | disposition home or self-care (01) ==
PROVIDERS: PCP Internal Medicine; Referring Provider Internal Medicine; Visit Provider Internal Medicine
DX: R73.9 Hyperglycemia, unspecified (principal)
CPT/HCPCS: 36415; 83036

== ENCOUNTER → 2024-09-21 | Outpatient (CLI) | payer MEDICARE, SELFPAY ==
--- NOTE | 2024-09-21 07:13 | CT_ITS ---
EXAM: BRAIN/HEAD W/WO CONTRAST CLINICAL HISTORY: Possible acoustic neuroma on the left side. Left hearing loss. COMPARISON: None. TECHNIQUE: Multiple axial tomographic images were obtained with and without intravenous contrast administration. Coronal and sagittal reconstruction was obtained as well.. 50 cc of Isovue 370 was injected intravenously. FINDINGS: Mild degree of cerebral atrophy. Mild cerebellar atrophy. Mucosal retention cyst or polyp at the base of the left maxillary sinus. The internal auditory canals appear unremarkable. CT/Brain/Head W/WO Contrast IMPRESSION: Mild degree of cerebral atrophy. Reading Location: [id number]
== END | disposition home or self-care (01) ==
LOC: CT 07:12
PROVIDERS: PCP Internal Medicine; Referring Provider Otolaryngology; Visit Provider Otolaryngology
DX: H90.3 Sensorineural hearing loss, bilateral (principal)
CPT/HCPCS: 70470; Q9967

== ENCOUNTER → 2025-01-07 | Outpatient (CLI) | payer MEDICARE, SELFPAY ==
[2025-01-08 12:08] LABS: PSA, Free 1.24 ng/mL; PSA, Free % 36.8 % (.)
== END | disposition home or self-care (01) ==
LOC: BIMLAB 09:57
PROVIDERS: PCP Internal Medicine; Referring Provider Nurse Practitioner; Visit Provider Nurse Practitioner
DX: R97.20 Elevated prostate specific antigen [PSA] (principal)
CPT/HCPCS: 36415; 84153; 84154

== ENCOUNTER → 2025-05-01 | Outpatient (CLI) | payer MEDICARE, SELFPAY ==
--- NOTE | 2025-05-01 13:47 | ECHOD_ITS ---
Reason For Study Reason For Study: CARDIOMYOPATHY Procedure This was a 2D Doppler, Color Flow transthoracic echocardiogram. Myocardial strain analysis was performed in this exam to aid in the assessment of cardiac function. Exam performed in department. Left Ventricle Normal LV size. The global longitudinal strain = -15.3% (abnormal). The left ventricular ejection fraction is 50 %. Stage 1 diastolic dysfunction. No regional wall motion abnormalities noted. Right Ventricle Normal RV size. ICD or pacer leads identified within the right ventricle. Normal systolic function. Atria Normal left atrium. Normal right atrium. Mitral Valve Normal mitral valve. Tricuspid Valve Normal tricuspid valve. Mild (1+) tricuspid valve insufficiency. Pulmonary artery systolic pressure is 20 mmHg. Pulmonic Valve Normal pulmonic valve. Great Vessels Normal aortic root. The pulmonary artery is normal size. Inferior vena cava collapse with respiration. Pericardium/Pleural No pericardial effusion. MMode/2D Measurements & Calculations LVIDd: 5.3 cm IVSd: 1.1 cm LVOT diam: 2.2 cm LVIDs: 4.0 cm LVPWd: 1.1 cm LVOT area: 3.8 cm2 RVDd: 4.0 cm FS: 24.8 % asc Aorta Diam: 3.2 cm LAV(MOD-bp): 56.3 ml LVAd ap4: 29.1 cm2 LAV(MOD-bp) Indexed: 25.3 ml/m2 LVLd ap4: 9.0 cm LAV(MOD-sp2): 57.5 ml EDV(MOD-sp4): 79.0 ml LAV(MOD-sp4): 56.4 ml EDV(sp4-el): 79.6 ml LVAs ap4: 19.3 cm2 LVLs ap4: 8.4 cm ESV(MOD-sp4): 37.5 ml ESV(sp4-el): 37.7 ml EF(MOD-sp4): 52.6 % EF(sp4-el): 52.7 % SV(MOD-sp4): 41.5 ml SV(MOD-sp2): 37.3 ml LVAd ap2: 28.6 cm2 LVLd ap2: 8.9 cm SI(MOD-sp4): 18.6 ml/m2 SI(MOD-sp2): 16.7 ml/m2 EDV(MOD-sp2): 77.7 ml EDV(sp2-el): 77.5 ml LVAs ap2: 19.0 cm2 LVLs ap2: 7.8 cm ESV(MOD-sp2): 40.4 ml ESV(sp2-el): 39.2 ml EF(MOD-sp2): 48.0 % SV(sp4-el): 42.0 ml Ao sinus diam: 3.[address] Junction: 3.1 cm LA A4 area: 19.0 cm2 LA dimension(2D): 4.3 cm RA A4 area: 10.5 cm2 TAPSE: 2.3 cm Time Measurements MV dec time: 0.18 sec Doppler Measurements & Calculations MV E max mike: 61.5 cm/sec Lat Peak E' Mike: 7.7 cm/sec Med Peak E' Mike: 7.4 cm/sec MV A max mike: 63.7 cm/sec E/E' lat: 8.0 E/E' med: 8.3 MV E/A: 0.97 Ao V2 max: 115.5 cm/sec LV V1 max: 84.0 cm/sec MV dec slope: 340.2 cm/sec2 Ao max P.3 mmHg LV V1 max P.8 mmHg Ao V2 mean: 85.1 cm/sec LV V1 mean P.5 mmHg Ao mean P.1 mmHg LV V1 mean: 56.2 cm/sec Ao V2 VTI: 24.0 cm LV V1 VTI: 18.5 cm AV (velocity ratio): 0.77 MARY(I,D): 2.9 cm2 MARY(V,D): 2.7 cm2 SV(LVOT): 69.2 ml PA V2 max: 80.5 cm/sec PI end-d mike: 86.1 cm/sec TR max mike: 200.6 cm/sec TR max P.1 mmHg ECHO/Echo Complete Interpretation Summary Normal LV size. The global longitudinal strain = -15.3% (abnormal). The left ventricular ejection fraction is 50 %. Stage 1 diastolic dysfunction. Pulmonary artery systolic pressure is 20 mmHg. Ordering Physician: Jacy Patel Referring Physician: Etta Rocha M.D. Performed By: Nivia Hurtado RDCS
== END | disposition home or self-care (01) ==
LOC: CVS 13:45
PROVIDERS: PCP Internal Medicine; Referring Provider Nurse Practitioner Gerontology; Visit Provider Nurse Practitioner Gerontology
DX: I42.8 Other cardiomyopathies (principal)
CPT/HCPCS: 93306